=== PATIENT | male | born 1965 | race Caucasian/White ===

== ENCOUNTER 2017-09-30 22:11 | Observation (INO) | payer SELFPAY ==
[2017-09-30] MEDS ORDERED: diphenhydrAMINE 50 MG/ML VIAL ONE (22:47)
[2017-09-30] MEDS ORDERED: Metoclopramide HCl 10 MG/2 ML VIAL ONE (22:47)
[2017-09-30 23:05] LABS: Bilirubin Negative (Negative); Blood, Urine Trace (Negative); Clarity CLEAR (Clear); Glucose, Urine (Dipstick) Negative (Negative); Leukocyte Negative (Negative); Nitrite Negative (Negative); Protein, Urine (Dipstick) Negative (Neg-Trace); Specific Gravity, Urine 1.006 (1.002-1.036); Urobilinogen 0.2 mg/dL (0.2-1.0); pH, Urine 5.5 (5.0-9.0)
--- NOTE | 2017-09-30 23:13 | RAD ---
AP CHEST: History: Chest pain. IMPRESSION: No acute cardiopulmonary abnormality demonstrated. COMMENTS: Exam was compared to prior 02-27-13. No focal consolidation is evident. Cardiomediastinal silhouette i s within normal limits. No acute osseous abnormality is evident. POS: [facility]
[2017-09-30 23:15] LABS: Amphetamine Not Detected (NotDetected); Barbiturates Screen Not Detected (NotDetected); Benzodiazepine Screen Not Detected (NotDetected); Cocaine Metabolite Screen Not Detected (NotDetected); Medtox Control Line Valid? VALID (VALID); Medtox Reader # READER 1; Methadone Not Detected (NotDetected); Methamphetamine Not Detected (NotDetected); Opiate Screen Not Detected (NotDetected); Oxycodone Screen Not Detected (NotDetected); Phencyclidine (PCP) Not Detected (NotDetected); THC/Cannabinoid Screen Not Detected (NotDetected); Tricyclic Screen Not Detected (NotDetected)
[2017-09-30 23:16] LABS: Bacteria/HPF None Seen HPF (None Seen); Hyaline Casts/LPF NONE SEEN LPF (0-3 Hyaline); RBC/HPF None Seen HPF (0-3); Squamous Epithelial None Seen HPF (0-3); WBC/HPF None Seen HPF (0-3)
--- NOTE | 2017-09-30 23:35 | CT ---
CT BRAIN WITHOUT CONTRAST: Indication: Chest pain with shortness of breath, headache. Comparison: None. FINDINGS: No acute infarct, hemorrhage, or hydrocephalus is present. Septum pellucidum and third ventricle are midline. The mastoid air cells are clear. The paranasal sinuses are clear. No acute osseous abnormali ty is evident. IMPRESSION: No acute cardiopulmonary abnormality. POS: [facility]
[2017-09-30 23:59] LABS: #Basophils 0.1 thou/uL (0.0-0.2); #Eosinphils 0.4 thou/uL (0.0-0.7); #Lymphocytes 2.9 thou/uL (1.20-3.40); #Monocytes 0.6 thou/uL (0.11-0.59); #Neutrophils 3.3 thou/uL (1.40-6.50); %Basophils 1.1 % (0.0-1.0); %Eosinophils 5.3 % (0.0-10.0); %Lymphocytes 39.7 % (21.0-51.0); %Monocytes 8.4 % (0.0-10.0); %Neutrophils 45.5 % (42.0-75.0); Hemoglobin 14.7 g/dL (14.0-18.0); Mean Corpuscular HGB CONC 34.6 g/dL (32.0-36.0); Mean Corpuscular Hemoglobin 32.3 pg (27.0-31.0); Mean Corpuscular Volume 93.4 fl (80.0-94.0); Mean Platelet Volume 7.9 fL (7.4-10.4); Platelet Count 223 thou/uL (130-400); RBC Distribution Width 11.6 % (11.5-14.5); Red Blood Cell (RBC) Count 4.54 mill/uL (4.70-6.10); White Blood Cell (WBC) Count 7.3 thou/uL (4.8-10.8)
[2017-10-01 00:14] LABS: ALT (SGPT) 24 U/L (8-55); AST (SGOT) 22 U/L (5-34); Alkaline Phosphatase 39 U/L (40-150); Anion Gap 13 mmol/L (10-20); BUN (Urea Nitrogen) 11 mg/dL (8.4-25.7); Bilirubin, Total 0.3 mg/dL (0.2-1.2); Calc. Creatinine Clearance 0 mL/min (70-130); Calcium 8.2 mg/dL (7.8-10.44); Carbon Dioxide 23 mmol/L (22-29); Chloride 106 mmol/L (98-107); Estimated GFR-MDRD 76; Globulin 2.4 g/dL (2.4-3.5); Glucose 88 mg/dL (70-105); Lipase 31 U/L (8-78); Magnesium 2.2 mg/dL (1.6-2.6); Potassium 3.5 mmol/L (3.5-5.1); Protein, Total 6.4 g/dL (6.0-8.3); Sodium 138 mmol/L (136-145)
[2017-10-01 00:18] LABS: Acetaminophen Less than 6.0 mcg/mL (10.0-30.0); Alcohol 134 mg/dL (Less than 10); CKMB 1.6 ng/mL (0-6.6); Salicylate Less than 8.0 mg/dL (15.0-30.0); Troponin I Less than 0.010 ng/mL (< 0.028)
[2017-10-01 01:35] LABS: Troponin I Less than 0.010 ng/mL (< 0.028)
[2017-10-01] MEDS ORDERED: Ketorolac Tromethamine 30 MG/ML VIAL ONE (02:06)
[2017-10-01] MEDS ORDERED: Bisacodyl 5 MG TAB PO PRN (03:50)
[2017-10-01] MEDS ORDERED: Nitroglycerin 0.4 MG TAB (25 Tab Bottle) SL PRN (03:50)
[2017-10-01] MEDS ORDERED: Lorazepam 2 MG/ML VIAL SLOW IVP PRN (03:50)
[2017-10-01] MEDS ORDERED: Calcium Carbonate 500 MG ChewTAB PO PRN (03:50)
[2017-10-01] MEDS ORDERED: cloNIDine 0.1 MG TAB PO PRN (03:50)
[2017-10-01] MEDS ORDERED: Benzonatate 100 MG CAP PO PRN (03:50)
[2017-10-01] MEDS ORDERED: Senokot 8.6 MG TAB PO PRN (03:50)
[2017-10-01] MEDS ORDERED: Loratadine 10 MG TAB PO PRN (03:50)
[2017-10-01] MEDS ORDERED: Nitroglycerin 0.4 MG TAB (25 Tab Bottle) PO PRN (03:50)
[2017-10-01] MEDS ORDERED: Diabetic Tussin 200 MG/10 ML UDCUP PO PRN (03:50)
[2017-10-01] MEDS ORDERED: hydrALAZINE 20 MG/ML VIAL SLOW IVP PRN (03:50)
[2017-10-01] MEDS ORDERED: Mag-Al 1200 mg/1200 mg/30 ML UDCUP PO PRN (03:50)
[2017-10-01] MEDS ORDERED: traMADol HCl 50 MG TAB PO PRN (03:50)
[2017-10-01] MEDS ORDERED: Ondansetron HCl/PF 4 MG/2 ML Vial IVP PRN (03:50)
[2017-10-01] MEDS ORDERED: Acetaminophen 325 MG TAB PO PRN (03:50)
[2017-10-01] MEDS ORDERED: Dextrose 5% in Water 1,000 ML IV PRN (04:08)
[2017-10-01] MEDS ORDERED: Dextrose 50% Abboject 50 ML SYRINGE SLOW IVP PRN (04:08)
[2017-10-01] MEDS ORDERED: HumaLOG 300 UNITS/3 ML VIAL SC PRN ×2 (04:08)
[2017-10-01 05:03] VITALS: BMI 27.1
--- NOTE | 2017-10-01 05:03 | HP ---
DATE OF ADMISSION: 10/01/2017 CHIEF COMPLAINT: Chest pain. PRIMARY CARE PHYSICIAN: Niall Quiñones DO HISTORY OF PRESENT ILLNESS: Mr. John is a 51-year-old male with known history of diabetes mellitus, coronary artery disease, and CT in the past as well as history of prostate cancer, dyslipidemia, and hypertension, who presented to the emergency room with above-mentioned complaint. History is mainly obtained by discussion with emergency room physician. The patient is quite intoxicated at this time and is not answering any of my questions. There is no family at bedside; however, there was a earlier who has left now. According to the charts and according to the patient himself when he answers my questions: He says jannette fagan has been having this chest pain on and off for about 2 years. He is noncompliant with his medicati ons and he has not taken them for over a year. He does not follow up with any training representative. He has history of CT in 2006, but does not seem to have had any stents or surgeries done to him in the past. Upon presentation to the emergency room, he was hemodynamically stable with blood pressure of 129/79, saturating 94% on room air, heart rate of 64. His initial cardiac enzymes and EKG are unremarkable. He reported his pain to the emergency room physician as a sharp squeeze. He reported that it was a ssociated with shortness of breath and headache. He reported nausea without vomiting. He has receiv ed aspirin, Toradol, Reglan, and Benadryl in the emergency room and is now being admitted for further workup. PAST MEDICAL HISTORY: 1. Diabetes mellitus type 2, non-insulin dependent as far as the patient told me. 2. History of prostate cancer. 3. History of CT in 2006. 4. Dyslipidemia. 5. Hypertension. 6. Coronary artery disease. PAST SURGICAL HISTORY: Appendectomy. SOCIAL HISTORY: He drinks 6-8 beers every day and feels that it is not that much. He also smokes ci garettes, but I do not know how much as he will not tell me at this time. He denies any history of d rug abuse. FAMILY HISTORY: He says yes when asked about any coronary artery disease in his family. He also say s yes for diabetes and hypertension running in his family, but does not specify. CURRENT MEDICATIONS: Unknown, but he told the nurse that he was supposed to be on metformin, simvast atin, and metoprolol. Currently not taking any. REVIEW OF SYSTEMS: Limited review of system. The patient reports that he is still having pain in th e chest when he is sleeping quite deeply and was woken up by myself for the interview. He appears qu ite comfortable. Otherwise, he would not answer much of my questions. LABORATORY AND DIAGNOSTIC DATA: CBC is unremarkable. D-dimer 0.27. Serum chemistries unremarkable. Troponin less than 0.010 x2. CK-MB 1.6. Urinalysis shows trace blood. Serum alcohol level of 134 . Urine drug screen negative. CT scan of the brain unremarkable by my review. Chest x-ray unremark able by my review. Twelve-lead EKG by my review shows normal sinus rhythm without any acute ST or T- wave changes. PHYSICAL EXAMINATION: VITAL SIGNS: Blood pressure 129/79, pulse of 64, respirations 14, saturating 94% on room air, temper ature 97.4. GENERAL: No acute distress. He is comfortably sleeping in bed and is awake, alert, oriented x3 when woken up. HEENT: Mucous membranes are slightly dry. No oropharyngeal exudate or erythema. Head is normocepha lic, atraumatic. Pupils are equal, reactive to light and accommodation. Extraocular movements are i ntact. NECK: Supple without any lymphadenopathy, JVD, or bruit. CHEST: Clear to auscultation without any wheezing, rales, or rhonchi. CARDIOVASCULAR: Rate and rhythm is regular without any murmur, rubs, or gallops. ABDOMEN: Soft, nontender, nondistended, positive bowel sounds. EXTREMITIES: Free of any cyanosis, clubbing, or edema. NEUROLOGIC: Nonfocal. He is very somnolent, but otherwise awake, alert, oriented x3 when woken up. IMPRESSION AND PLAN: 1. Chest pain. What the patient is describing sounds like angina given his history of coronary rashmi ry disease. It seems more chronic than acute. The patient is very noncompliant with his medications and has not had any cardiac workup done in the recent past. At this time, we will continue to trend serial cardiac enzymes and obtain a stress test to rule out ACS, though the likelihood of ACS is low at this time. We will start him on daily dose of aspirin and restart the metoprolol and titrated to the response. He will be admitted under observation status on telemetry unit. 2. History of dyslipidemia. Check lipid panel and started on some sort of statin. 3. History of hypertension. We will start him on beta-kamran for now and if the blood pressure per mits, on ARMOND inhibitor or ARBs as well. 4. Diabetes mellitus. He will be restarted on metformin on discharge, but while in the hospital, we will start him on insulin sliding scale and monitor blood sugar a.c. and at bedtime. 5. Code status: FULL CODE. 6. Deep venous thrombosis and gastrointestinal prophylaxis and p.r.n. medications. DISPOSITION: Mr. John is currently being admitted to the hospital for ACS workup. He is currently on observation status. Further management will depend upon his clinical course.
[2017-10-01 05:24] LABS: #Basophils 0.1 thou/uL (0.0-0.2); #Eosinphils 0.4 thou/uL (0.0-0.7); #Lymphocytes 2.6 thou/uL (1.20-3.40); #Monocytes 0.6 thou/uL (0.11-0.59); #Neutrophils 2.6 thou/uL (1.40-6.50); %Eosinophils 5.8 % (0.0-10.0); %Lymphocytes 41.8 % (21.0-51.0); %Neutrophils 42.5 % (42.0-75.0); Hemoglobin 14.6 g/dL (14.0-18.0); Mean Corpuscular HGB CONC 33.7 g/dL (32.0-36.0); Mean Corpuscular Hemoglobin 31.7 pg (27.0-31.0); Mean Corpuscular Volume 94.2 fl (80.0-94.0); Mean Platelet Volume 8.1 fL (7.4-10.4); Platelet Count 191 thou/uL (130-400); RBC Distribution Width 11.6 % (11.5-14.5); Red Blood Cell (RBC) Count 4.61 mill/uL (4.70-6.10); White Blood Cell (WBC) Count 6.2 thou/uL (4.8-10.8)
[2017-10-01 05:28] LABS: Troponin I Less than 0.010 ng/mL (< 0.028)
[2017-10-01] MEDS ORDERED: Multivitamins, Adult 10 ML, Folic Acid 1 MG, Thiamine HCl 100 MG in Dextrose 5 %-0.45 %... IV SCH ×4 (06:00)
[2017-10-01 06:10] LABS: Anion Gap 14 mmol/L (10-20); BUN (Urea Nitrogen) 11 mg/dL (8.4-25.7); Calc. Creatinine Clearance 114 mL/min (70-130); Calcium 8.4 mg/dL (7.8-10.44); Carbon Dioxide 21 mmol/L (22-29); Chloride 111 mmol/L (98-107); Cholesterol 124 mg/dl (< 200 Desired); Estimated GFR-MDRD 84; Glucose 80 mg/dL (70-105); HDL Cholesterol 42 mg/dL (>60 Neg Risk); LDL Cholesterol, Calculated 68 mg/dL; Potassium 4.1 mmol/L (3.5-5.1); Sodium 142 mmol/L (136-145); Triglycerides 72 mg/dL (Less than 150)
[2017-10-01 07:21] LABS: Troponin I Less than 0.010 ng/mL (< 0.028)
[2017-10-01] MEDS ORDERED: Famotidine 20 MG TAB PO SCH (09:00)
[2017-10-01] MEDS ORDERED: Metoprolol Tartrate 25 MG TAB PO SCH (09:00)
[2017-10-01] MEDS ORDERED: Aspirin 325 MG TAB PO SCH (09:00)
[2017-10-01 12:07] VITALS: BP 146/80; TEMP 97.7
--- NOTE | 2017-10-01 13:45 | NM ---
MYOCARDIAL PERFUSION EVALUATION: DATE: 10/01/17 INDICATION: Asthma and moderate to severe COPD with chest pain. RADIOPHARMACEUTICAL: 31.3 mCi technetium-99m sestamibi with stress and 9 mCi technetium-99m sestamibi with rest. FINDINGS: On the raw data, there is some mild motion artifact slightly limiting the exam. No definite reversibl e myocardial perfusion defect is evident. There is normal wall motion and thickening with an estimate d LVEF of 73%. IMPRESSION: No scintigraphic evidence to suggest reversible myocardial ischemia. POS: [facility]
--- NOTE | 2017-10-01 14:49 | DIS ---
DATE OF ADMISSION: 10/01/2017 DATE OF DISCHARGE: 10/01/2017 PRIMARY CARE PHYSICIAN: Tammie Quiñones DO ADMITTING DIAGNOSES: 1. Chest pain. 2. Tobacco abuse. 3. Alcohol abuse. DISCHARGE MEDICATIONS: Thiamine 100 mg orally daily. HOSPITAL COURSE: Mr. Alvaro Arroyo is a pleasant 51-year-old gentleman, who was admitted to [facility] on 10/01/2017 for chest discomfort and alcohol intoxication. He had a low D-di glory. He also had a nuclear stress test, which did not reveal any reversible myocardial ischemia. Le ft ventricular ejection fraction was estimated at 73%. He has been advised to stop tobacco abuse and alcohol abuse. He was chest pain free by the time of d ischarge. Many thanks for allowing me to participate in your patient's care. Please feel free to contact me wi th any questions or concerns. DISCHARGE DESTINATION: Home.
[2017-10-01] MEDS ORDERED: ADENOSINE 60 MG/20 ML VIAL ONE (16:24)
[2017-10-01] MEDS ORDERED: Atorvastatin Calcium 10 MG TAB PO SCH (21:00)
--- NOTE | 2017-10-06 20:24 | EKG ---
Test Reason : CHESTPAIN Blood Pressure : / mmHG Vent. Rate : 060 BPM Atrial Rate : 060 BPM P-R Int : 154 ms QRS Dur : 104 ms QT Int : 434 ms P-R-T Axes : 016 -21 010 degrees QTc Int : 434 ms Normal sinus rhythm Incomplete right bundle branch block Borderline ECG Confirmed by SABRINA HOFFMAN ([id number]), movie editor MIRIAM JURADO ([id number]) on 10/06/2017 8:23:36 PM Referred By: BENNETT HOFFMAN Confirmed By:SABRINA HOFFMAN
== END 2017-10-01 17:46 | disposition home or self-care (01) ==
LOC: ERS 22:11 → 2SW 10-01 03:06
PROVIDERS: ADMIT Internal Medicine; ATTEND Internal Medicine
DX: R07.89 Other chest pain (principal); F17.210 Nicotine dependence, cigarettes, uncomplicated; F10.129 Alcohol abuse with intoxication, unspecified; E11.9 Type 2 diabetes mellitus without complications; I25.10 Atherosclerotic heart disease of native coronary artery without angina pectoris; I25.2 Old myocardial infarction; E78.5 Hyperlipidemia, unspecified; I10 Essential (primary) hypertension; Z90.49 Acquired absence of other specified parts of digestive tract; Z85.46 Personal history of malignant neoplasm of prostate; Z82.49 Family history of ischemic heart disease and other diseases of the circulatory system
CPT/HCPCS: 36415; 36416; 70450; 71045; 78452; 80048; 80053; 80061; 80306; 80307; 81003; 81015; 82553; 83690; 83735; 84484; 85025; 85379; 93005; 93017; 94760; 96361; 96365; 96375; A9500; G0378; J0153; J1200; J1885; J2765; J3411; J7042

== ENCOUNTER 2018-02-23 00:59 | Inpatient (IN) | payer OTHER, SELFPAY ==
[2018-02-23 01:25] LABS: #Basophils 0.1 thou/uL (0.0-0.2); #Eosinphils 0.4 thou/uL (0.0-0.7); #Lymphocytes 2.5 thou/uL (1.20-3.40); #Monocytes 0.9 thou/uL (0.11-0.59); #Neutrophils 6.5 thou/uL (1.40-6.50); %Basophils 0.8 % (0.0-1.0); %Lymphocytes 24.4 % (21.0-51.0); %Monocytes 8.7 % (0.0-10.0); %Neutrophils 62.1 % (42.0-75.0); Hemoglobin 15.7 g/dL (14.0-18.0); Mean Corpuscular HGB CONC 34.4 g/dL (32.0-36.0); Mean Corpuscular Hemoglobin 31.9 pg (27.0-31.0); Mean Corpuscular Volume 92.8 fL (78.0-98.0); Mean Platelet Volume 7.7 fL (7.4-10.4); Platelet Count 220 thou/uL (130-400); Red Blood Cell (RBC) Count 4.93 mill/uL (4.70-6.10); White Blood Cell (WBC) Count 10.4 thou/uL (4.8-10.8)
[2018-02-23 01:44] LABS: Acetaminophen Less than 6.0 mcg/mL (10.0-30.0); Alcohol 200 mg/dL (Less than 10); Salicylate Less than 8.0 mg/dL (15.0-30.0)
[2018-02-23 01:46] LABS: ALT (SGPT) 23 U/L (8-55); AST (SGOT) 28 U/L (5-34); Albumin 4.3 g/dL (3.5-5.0); Alkaline Phosphatase 42 U/L (40-150); Anion Gap 17 mmol/L (10-20); BUN (Urea Nitrogen) 13 mg/dL (8.4-25.7); Bilirubin, Total 0.6 mg/dL (0.2-1.2); CK (CPK) 270 U/L (30-200); Calc. Creatinine Clearance 0 mL/min (70-130); Calcium 8.8 mg/dL (7.8-10.44); Carbon Dioxide 19 mmol/L (22-29); Chloride 100 mmol/L (98-107); Estimated GFR-MDRD 74; Globulin 2.8 g/dL (2.4-3.5); Glucose 99 mg/dL (70-105); Potassium 3.6 mmol/L (3.5-5.1); Protein, Total 7.1 g/dL (6.0-8.3); Sodium 132 mmol/L (136-145)
[2018-02-23] MEDS ORDERED: Nicotine 21 MG PATCH TOP SCH (02:45)
[2018-02-23] MEDS ORDERED: Ondansetron HCl/PF 4 MG/2 ML Vial IVP PRN (04:13)
[2018-02-23] MEDS ORDERED: Promethazine HCl 25 MG/ML VIAL IM PRN ×2 (04:13)
[2018-02-23] MEDS ORDERED: Cyclobenzaprine 10 MG TAB PO PRN (04:13)
[2018-02-23] MEDS ORDERED: traMADol HCl 50 MG TAB PO PRN (04:13)
[2018-02-23] MEDS ORDERED: hydrALAZINE 20 MG/ML VIAL SLOW IVP PRN (04:13)
[2018-02-23] MEDS ORDERED: Ondansetron ODT 4 MG TAB PO PRN (04:13)
[2018-02-23] MEDS ORDERED: Dextrose 5% in Water 1,000 ML IV PRN (04:13)
[2018-02-23] MEDS ORDERED: Dextrose 50% Abboject 50 ML SYRINGE SLOW IVP PRN (04:13)
[2018-02-23] MEDS ORDERED: Acetaminophen 1,000 MG in Premix Bag 1 BAG IVPB SCH (04:30)
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
[2018-02-23] MEDS: Sodium Chloride 0.9% 1,000 ML IV SCH ×2 (05:13→13:34)
[2018-02-23] MEDS: Ibuprofen 800 MG TAB PO SCH ×3 (05:14→22:11)
[2018-02-23] MEDS: Oxazepam 10 MG CAP PO SCH ×3 (05:14→22:11)
[2018-02-23 07:29] VITALS: BMI 25.5
[2018-02-23] MEDS: Famotidine 20 MG TAB PO SCH ×2 (08:37→20:03)
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
[2018-02-23] MEDS: Acetaminophen 500 MG TAB PO SCH ×2 (11:35→17:37)
[2018-02-23] MEDS: traMADol HCl 50 MG TAB PO PRN ×2 (11:36→17:37)
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
[2018-02-23] MEDS ORDERED: ISOVUE-370 76%-LOCM 1 ML ONE (13:41)
[2018-02-23 20:15] VITALS: BP 168/96; TEMP 97.9
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
== END 2018-02-23 21:40 | disposition home or self-care (01) | DRG 552 ==
LOC: ERS 00:59 → SURG A 03:54 → EEVIPCON 03:54
PROVIDERS: ADMIT Surgery; ATTEND Surgery
DX: S12.000A Unspecified displaced fracture of first cervical vertebra, initial encounter for closed fracture (principal); S12.100A Unspecified displaced fracture of second cervical vertebra, initial encounter for closed fracture; F17.210 Nicotine dependence, cigarettes, uncomplicated; F10.129 Alcohol abuse with intoxication, unspecified; Y90.7 Blood alcohol level of 200-239 mg/100 ml; V58.0XXA Driver of pick-up truck or van injured in noncollision transport accident in nontraffic accident, initial encounter
CPT/HCPCS: 36415; 36416; 70450; 70498; 71045; 71260; 72125; 74177; 80053; 80307; 82550; 85025; 93005; G0390; G8978-GP-CI; G8979-GP-CI; G8980-GP-CI; J0131

== ENCOUNTER 2018-03-25 17:13 | Emergency (ER) | payer OTHER, SELFPAY ==
[2018-03-25] MEDS ORDERED: Ondansetron HCl/PF 4 MG/2 ML Vial ONE (17:45)
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
[2018-03-25] MEDS ORDERED: Morphine 4 MG/ML VIAL ONE (20:28)
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
== END 2018-03-26 00:45 | disposition home or self-care (01) ==
LOC: ERS 17:13
DX: S10.93XA Contusion of unspecified part of neck, initial encounter (principal); E11.9 Type 2 diabetes mellitus without complications; E78.5 Hyperlipidemia, unspecified; I10 Essential (primary) hypertension; I25.2 Old myocardial infarction; F17.210 Nicotine dependence, cigarettes, uncomplicated; Z86.73 Personal history of transient ischemic attack (TIA), and cerebral infarction without residual deficits; W22.8XXA Striking against or struck by other objects, initial encounter
CPT/HCPCS: 70450; 72125; 72141; 93005; 96374; 96375; G0390; J2270; J2405

== ENCOUNTER 2018-04-17 13:25 | Outpatient (CLI) | payer SELFPAY ==
--- NOTE | 2018-04-17 14:24 | RAD ---
CERVICAL SPINE FIVE VIEWS: History: Follow up fracture. Comparison: CT 03-25-18 revealing a fracture through the mass of C2 involving the vertebral arteries f oramen on the left. FINDINGS: The atlanto axial space is normal. Cervical vertebrae maintain normal height and alignment. Posterior alignment is normal at C1, C2, and C3. The lateral mass fracture on the left at C2 is not appreciate d on this plain film evaluation of the cervical spine. IMPRESSION: Cervical vertebral bodies maintain normal height and alignment. The C2 fracture is not appreciated on plain film evaluation. POS: [facility]
== END 2018-04-17 13:26 | disposition home or self-care (01) ==
LOC: TBSIIMAG 13:25
PROVIDERS: ATTEND Surgery
DX: S12.000A Unspecified displaced fracture of first cervical vertebra, initial encounter for closed fracture (principal); S12.100A Unspecified displaced fracture of second cervical vertebra, initial encounter for closed fracture
CPT/HCPCS: 72040